=== PATIENT | female | born 1980 | race Caucasian/White ===

== ENCOUNTER 2017-04-19 09:06 | Emergency (ER) | payer BC ==
[~2017-04-19] VITALS: Ht 167.6 cm; Wt 72.5 kg
[2017-04-19 10:14] LABS: APPEARANCE CLEAR ((CLEAR)); BILIRUBIN NEGATIVE; BLOOD NEGATIVE; COLOR YELLOW ((YELLOW)); GLUCOSE (STRIP) NEGATIVE; KETONES NEGATIVE; LEUKOCYTES NEGATIVE; NITRITE NEGATIVE; PROTEIN (STRIP) NEGATIVE; UCUL ADDED? NO; UROBILINOGEN 0.2 MG/DL (0.2-1.0)
[2017-04-19 10:35] LABS: HEMATOCRIT 41.2 % (36.0-46.0); HEMOGLOBIN 14.2 G/DL (11.9-15.5); MCH 30.7 PG (29.0-34.0); MCHC 34.5 G/DL (30.0-36.0); PLATELET COUNT 277 K/uL (156-360); RBC DIS.WIDTH-CV 12.7 % (11.8-14.6); RBC DIS.WIDTH-SD 41.1 % (39-53); RED BLOOD COUNT 4.63 M/uL (3.80-5.20); WHITE BLOOD COUNT 6.2 K/uL (4.1-10.2)
[2017-04-19 10:44] LABS: ALBUMIN 4.4 g/dL (3.2-4.8)
[2017-04-19 10:45] LABS: CHLORIDE 108 mEq/L (99-109); POTASSIUM 4.3 mEq/L (3.7-5.4); SODIUM 138 mEq/L (136-147)
[2017-04-19 10:47] LABS: GLUCOSE 90 mg/dL (70-99); TOTAL PROTEIN 7.8 g/dL (6.4-8.3)
[2017-04-19 10:49] LABS: TOTAL BILIRUBIN 0.7 mg/dL (0.0-1.0)
[2017-04-19 10:50] LABS: ALKALINE PHOSPHATASE 69 IU/L (3-129)
[2017-04-19 10:51] LABS: CREATININE 0.7 mg/dL (0.6-1.3); GFR ESTIMATE (CALCULATED) > 59 mL/min/
[2017-04-19 10:52] LABS: AST (GOT) 18 IU/L (2-34); UREA NITROGEN (BUN) 15 mg/dL (9-23)
[2017-04-19 10:53] LABS: ALT (GPT) 11 IU/L (3-49)
[2017-04-19 10:54] LABS: LIPASE 16 U/L (1.0-51.0)
[2017-04-19 11:00] LABS: QUANTITATIVE HCG < 4.0 MIU/ML
[2017-04-19] MEDS ORDERED: PROTONIX40 MG PO (12:09)
[2017-04-19] MEDS ORDERED: NORCO 5/3251 TABLET PO (12:09)
[2017-04-19] MEDS ORDERED: ZOFRAN4 MG PO (12:09)
[2017-04-19 12:18] VITALS: BP 110/68
== END 2017-04-19 12:21 | disposition home or self-care (01) ==
LOC: EME 09:06
PROVIDERS: Physician Assistant
DX: K29.70 Gastritis, unspecified, without bleeding (principal); Z87.19 Personal history of other diseases of the digestive system
CPT/HCPCS: 74177; 80053; 81003; 83690; 84702; 85027; 99281; 99285; C9113; J2405; J3010

== ENCOUNTER 2017-07-20 08:46 | Emergency (ER) | payer BC ==
[~2017-07-20] VITALS: Ht 170.2 cm; Wt 69.1 kg
[~2017-07-20 08:46] MED LIST: NORCO 5/3251 TABLET PO; PROTONIX40 MG PO; ZOFRAN4 MG PO
[2017-07-20 10:23] LABS: APPEARANCE CLOUDY ((CLEAR)); BILIRUBIN NEGATIVE; BLOOD NEGATIVE; COLOR YELLOW ((YELLOW)); GLUCOSE (STRIP) NEGATIVE; KETONES 20; LEUKOCYTES NEGATIVE; NITRITE NEGATIVE; PROTEIN (STRIP) 30; SPECIFIC GRAVITY 1.025 (1.000-1.030)
[2017-07-20 10:29] LABS: BACTERIA RARE /HPF; EPITHELIAL CELLS 2+ /HPF; MUCUS 3+ /LPF; RED BLOOD CELLS 0-5 /HPF (0-5); UCUL ADDED? NO; WHITE BLOOD CELLS 0-5 /HPF (0-5)
[2017-07-20 10:44] LABS: HEMATOCRIT 40.3 % (36.0-46.0); HEMOGLOBIN 13.7 G/DL (11.9-15.5); MCH 29.9 PG (29.0-34.0); PLATELET COUNT 323 K/uL (156-360); RBC DIS.WIDTH-CV 12.8 % (11.8-14.6); RBC DIS.WIDTH-SD 41.5 % (39-53); RED BLOOD COUNT 4.58 M/uL (3.80-5.20); WHITE BLOOD COUNT 3.3 K/uL (4.1-10.2)
[2017-07-20 11:00] LABS: ALBUMIN 4.3 g/dL (3.2-4.8); CHLORIDE 106 mEq/L (99-109); POTASSIUM 4.1 mEq/L (3.7-5.4); SODIUM 141 mEq/L (136-147)
[2017-07-20 11:02] LABS: GLUCOSE 89 mg/dL (70-99); TOTAL PROTEIN 7.8 g/dL (6.4-8.3)
[2017-07-20 11:04] LABS: TOTAL BILIRUBIN 0.5 mg/dL (0.0-1.0)
[2017-07-20 11:05] LABS: ALKALINE PHOSPHATASE 84 IU/L (3-129)
[2017-07-20 11:06] LABS: CREATININE 0.8 mg/dL (0.6-1.3); GFR ESTIMATE (CALCULATED) > 59 mL/min/
[2017-07-20 11:07] LABS: AST (GOT) 27 IU/L (2-34); UREA NITROGEN (BUN) 13 mg/dL (9-23)
[2017-07-20 11:09] LABS: ALT (GPT) 25 IU/L (3-49)
[2017-07-20 11:40] LABS: QUANTITATIVE HCG < 4.0 MIU/ML
[2017-07-20] MEDS ORDERED: REGLAN10 MG PO (12:38)
[2017-07-20 13:42] VITALS: BP 134/59
[2017-07-21] MEDS ORDERED: PANTOPRAZOLE SO40 MG PO (10:59)
[2017-07-21] MEDS ORDERED: RANITIDINE HCL300 MG PO (11:00)
[2017-07-21] MEDS ORDERED: DICYCLOMINE HCL10 MG PO (11:00)
[2017-07-21] MEDS ORDERED: SERTRALINE HCL100 MG PO (11:01)
[2017-07-21] MEDS ORDERED: OMEPRAZOLE40 M1 PO (11:02)
[2017-07-21] MEDS ORDERED: ERGOCALCIF50000 UNIT PO (11:03)
== END 2017-07-20 13:48 | disposition home or self-care (01) ==
LOC: EME 08:46
DX: K44.9 Diaphragmatic hernia without obstruction or gangrene (principal); F32.9 Major depressive disorder, single episode, unspecified; Z83.79 Family history of other diseases of the digestive system; Z83.3 Family history of diabetes mellitus
CPT/HCPCS: 80053; 81003; 84702; 85027; 99281; 99284; J2405; J7030

== ENCOUNTER 2017-07-21 06:26 | Inpatient (IN) | payer BC ==
[~2017-07-21] VITALS: Ht 170.2 cm; Wt 70.1 kg
[~2017-07-21 06:26] MED LIST changes: +REGLAN10 MG PO
[2017-07-21 06:57] LABS: BASOPHIL (%) 0 % (0-1); EOSINOPHIL (%) 0 % (0-5); HEMATOCRIT 39.1 % (36.0-46.0); HEMOGLOBIN 13.5 G/DL (11.9-15.5); IMMATURE GRANULOCYTE (%) 0.5 % (0.0-0.7); LYMPHOCYTE (%) 27.6 % (15-42); LYMPHOCYTE COUNT 1.1 K/uL (1.0-2.8); MCH 29.7 PG (29.0-34.0); MCHC 34.5 G/DL (30.0-36.0); MCV 86.1 FL (83-99); MONOCYTE (%) 8.1 % (3-12); MONOCYTE COUNT 0.3 K/uL (0-0.8); NEUTROPHIL (%) 63.8 % (45-76); NEUTROPHIL COUNT 2.5 K/uL (1.8-6.4); PLATELET COUNT 313 K/uL (156-360); RBC DIS.WIDTH-CV 12.6 % (11.8-14.6); RBC DIS.WIDTH-SD 39.3 % (39-53); RED BLOOD COUNT 4.54 M/uL (3.80-5.20); WHITE BLOOD COUNT 3.8 K/uL (4.1-10.2)
[2017-07-21 07:41] LABS: ALBUMIN 4.1 G/DL (3.2-4.8); ALKALINE PHOSPHATASE 74 IU/L (3-129); ALT (GPT) 18 IU/L (3-49); AST (GOT) 20 IU/L (2-34); CHLORIDE 106 MEQ/L (99-109); CREATININE 0.7 MG/DL (0.6-1.3); GFR ESTIMATE (CALCULATED) > 59 mL/min/; GLUCOSE 107 mg/dL (70-99); LIPASE 18 U/L (1.0-51.0); POTASSIUM 3.8 MEQ/L (3.7-5.4); SODIUM 138 MEQ/L (136-147); TOTAL BILIRUBIN 0.5 MG/DL (0.0-1.0); TOTAL PROTEIN 7.6 G/DL (6.4-8.3); UREA NITROGEN (BUN) 6 mg/dL (9-23)
[2017-07-21] MEDS ORDERED: PANTOPRAZOLE SO40 MG PO (10:59)
[2017-07-21] MEDS ORDERED: DICYCLOMINE HCL10 MG PO (11:00)
[2017-07-21] MEDS ORDERED: RANITIDINE HCL300 MG PO (11:00)
[2017-07-21] MEDS ORDERED: SERTRALINE HCL100 MG PO (11:01)
[2017-07-21] MEDS ORDERED: OMEPRAZOLE40 M1 PO (11:02)
[2017-07-21] MEDS ORDERED: ERGOCALCIF50000 UNIT PO (11:03)
[2017-07-21 15:23] VITALS: BP 124/79
[2017-07-21 18:39] LABS: C DIFF TOXIN POSITIVE (NEGATIVE)
[2017-07-21 23:38] VITALS: BP 106/64
[2017-07-22 07:13] LABS: CHLORIDE 110 MEQ/L (99-109); CREATININE 0.7 MG/DL (0.6-1.3); GFR ESTIMATE (CALCULATED) > 59 mL/min/; GLUCOSE 101 mg/dL (70-99); POTASSIUM 3.5 MEQ/L (3.7-5.4); SODIUM 143 MEQ/L (136-147); UREA NITROGEN (BUN) 3 mg/dL (9-23)
[2017-07-22 09:24] VITALS: BP 111/66
[2017-07-22 11:00] LABS: MAGNESIUM 1.8 mg/dl (1.3-2.7)
[2017-07-22 11:55] VITALS: BP 103/60
[2017-07-22 16:22] VITALS: BP 99/56
[2017-07-22 19:57] VITALS: BP 96/61
[2017-07-22 23:08] VITALS: BP 110/69
[2017-07-23 04:17] VITALS: BP 115/62
[2017-07-23 06:05] LABS: HEMATOCRIT 36.5 % (36.0-46.0); MCV 89.9 FL (83-99)
[2017-07-23 08:46] VITALS: BP 120/70
[2017-07-23 12:00] VITALS: BP 126/69
[2017-07-23 19:53] VITALS: BP 122/78
[2017-07-23 19:56] VITALS: BP 104/67
[2017-07-24 06:30] LABS: HEMATOCRIT 34.5 % (36.0-46.0); HEMOGLOBIN 11.7 G/DL (11.9-15.5); MCH 30.2 PG (29.0-34.0); MCHC 33.9 G/DL (30.0-36.0); MCV 89.1 FL (83-99); PLATELET COUNT 268 K/uL (156-360); RBC DIS.WIDTH-CV 12.6 % (11.8-14.6); RBC DIS.WIDTH-SD 41.3 % (39-53); RED BLOOD COUNT 3.87 M/uL (3.80-5.20); WHITE BLOOD COUNT 4.7 K/uL (4.1-10.2)
[2017-07-24 06:32] LABS: ALBUMIN 3.5 G/DL (3.2-4.8); CHLORIDE 109 MEQ/L (99-109); CREATININE 0.7 MG/DL (0.6-1.3); GFR ESTIMATE (CALCULATED) > 59 mL/min/; GLUCOSE 98 mg/dL (70-99); PHOSPHORUS 5.1 mg/dL (2.5-4.9); SODIUM 143 MEQ/L (136-147); UREA NITROGEN (BUN) 3 mg/dL (9-23)
[2017-07-24 07:20] VITALS: BP 123/73
[2017-07-24] MEDS ORDERED: PHENADOZ25 MG PR (13:31)
[2017-07-24] MEDS ORDERED: VANCOCIN HCL125 MG PO (13:32)
== END 2017-07-24 14:51 | disposition home or self-care (01) | DRG 373 ==
LOC: EME 06:26 → EDOF 10:15 → 5WEST 10:15 → EDOF 10:15 → ENRESERV 10:16 → EDOF 10:37 → ENRESERV 14:41 → 5WEST 15:18
PROVIDERS: Emergency Medicine; Hospitalist; Internal Medicine Gastroenterology; Nurse Practitioner Adult Health
DX: A04.72 Enterocolitis due to Clostridium difficile, not specified as recurrent (principal); N83.202 Unspecified ovarian cyst, left side; K29.70 Gastritis, unspecified, without bleeding; K21.9 Gastro-esophageal reflux disease without esophagitis; E86.0 Dehydration; N80.9 Endometriosis, unspecified; K44.9 Diaphragmatic hernia without obstruction or gangrene; K59.00 Constipation, unspecified; F32.9 Major depressive disorder, single episode, unspecified; Z72.0 Tobacco use; Z79.899 Other long term (current) drug therapy
CPT/HCPCS: 70450; 74176; 76856; 80048; 80053; 80069; 81003; 82948; 83690; 83735; 84702; 85014; 85018; 85025; 85027; 87177; 87493; 99281; 99284; G0378; J0780; J1200; J1644; J1885; J2405; J2765; J3480; J7030; J7042; S0030